=== PATIENT | female | born 1955 | race Native Hawaiian/Other Pacific Islander ===

== ENCOUNTER 2020-12-20 13:56 | Outpatient (CLI) | payer OTHER | END 2020-12-20 21:14 | disposition home or self-care (01) | LOC: INF 13:56 | PROVIDERS: ATTEND Internal Medicine | DX: Z23 Encounter for immunization (principal) | CPT/HCPCS: 96372 ==

== ENCOUNTER 2021-01-16 14:49 | Outpatient (CLI) | payer OTHER | END 2021-01-16 21:33 | disposition home or self-care (01) | LOC: INF 14:49 | PROVIDERS: ATTEND Internal Medicine | DX: Z23 Encounter for immunization (principal) | CPT/HCPCS: 96372 ==